=== PATIENT | male | born 1995 | race African-American/Black ===

== ENCOUNTER 2017-04-22 07:18 | Emergency (ER) | payer OTHER, BC ==
[~2017-04-22] VITALS: Ht 188 cm; Wt 115.0 kg
[2017-04-22 07:21] VITALS: BP 143/95; PULSE 80; RESP 20; TEMP 98.3; O2SAT 99
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
[2017-04-22] MEDS ORDERED: ORPH100T99 PO (08:37)
[2017-04-22] MEDS ORDERED: IBUP-232 PO (08:37)
[2017-04-22] MEDS ORDERED: NON-500T13 PO (08:37)
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
== END 2017-04-22 09:05 | disposition home or self-care (01) ==
LOC: NEPK 07:18
DX: S39.012A Strain of muscle, fascia and tendon of lower back, initial encounter (principal); S70.02XA Contusion of left hip, initial encounter; V43.52XA Car driver injured in collision with other type car in traffic accident, initial encounter; Y92.488 Other paved roadways as the place of occurrence of the external cause
CPT/HCPCS: 72110; 73502; 99284